=== PATIENT | female | born 1960 | race American Indian/Alaskan Native ===

== ENCOUNTER 2018-05-11 14:12 | Emergency (ER) | payer OTHER, BC ==
[2018-05-11 14:36] VITALS: BP 128/69
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
[2018-05-11] MEDS ORDERED: MOTRIN PO ONE (14:52)
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
--- NOTE | 2018-05-11 16:20 | XRay Report ---
FINAL REPORT EXAM: XR HIP 2-3V RT HISTORY: right hip pauin TECHNIQUE: Frontal view of the pelvis and hips and frog-lateral view right hip Comparison: None FINDINGS: There is no evidence of fracture or subluxation. The hip joints are maintained. The soft tissues are unremarkable IMPRESSION: 1. No evidence of fracture or subluxation.
--- NOTE | 2018-05-11 16:23 | XRay Report ---
FINAL REPORT EXAM: XR SPINE LUMBOSACRAL 2-3V HISTORY: low back pain TECHNIQUE: Frontal and lateral views lumbar spine and coned-down lateral view lumbosacral junction, sacrum and coccyx Comparison: None FINDINGS: Bony alignment is normal. The vertebral heights are maintained. There is loss of height of the L3-L4 disc with associated degenerative endplate change. There is degenerative facet change in the lower lumbar spine. There is no evidence of fracture or subluxation. The soft tissues are unremarkable. IMPRESSION: 1. No evidence of fracture or subluxation. However, lumbar spine fractures can be missed with plain film imaging. If there is a persistent clinical concern for fracture, CT imaging would be helpful. 2. Spondylitic change lumbar spine.
== END 2018-05-11 16:38 | disposition home or self-care (01) ==
LOC: ED 14:12
DX: S39.012A Strain of muscle, fascia and tendon of lower back, initial encounter (principal); S76.011A Strain of muscle, fascia and tendon of right hip, initial encounter; S96.911A Strain of unspecified muscle and tendon at ankle and foot level, right foot, initial encounter; R51 Headache; Z90.710 Acquired absence of both cervix and uterus; Z88.6 Allergy status to analgesic agent; Z88.1 Allergy status to other antibiotic agents; Z88.2 Allergy status to sulfonamides; Z88.8 Allergy status to other drugs, medicaments and biological substances; V89.2XXA Person injured in unspecified motor-vehicle accident, traffic, initial encounter; Y93.89 Activity, other specified; Y92.411 Interstate highway as the place of occurrence of the external cause; Y99.8 Other external cause status
CPT/HCPCS: 72100; 99283